=== PATIENT | female | born 1960 | race Caucasian/White ===

== ENCOUNTER 2017-06-28 08:38 | Outpatient (CLI) | payer OTHER ==
--- NOTE | 2017-06-28 10:14 | ULT ---
ABDOMINAL SONOGRAM: HISTORY: Hepatitis. FINDINGS: Non-shadowing sludge and echogenic stones are present within the gallbladder lumen. There is no gall bladder wall thickening or pericholecystic fluid. Common duct is 0.6 cm diameter. Liver is unremark able without focal mass or intrahepatic biliary dilatation. No free fluid is visible. Spleen is upp er limits of normal at 12.6 cm. The kidneys and visualized portions of the abdominal aorta, IVC, and pancreas have a normal appearance. IMPRESSION: Cholelithiasis. No evidence of acute biliary obstruction. POS: [facility]
== END 2017-06-28 08:39 | disposition home or self-care (01) ==
LOC: ULT 08:38
PROVIDERS: ATTEND Family Medicine
DX: B19.20 Unspecified viral hepatitis C without hepatic coma (principal); K80.20 Calculus of gallbladder without cholecystitis without obstruction
CPT/HCPCS: 76700

== ENCOUNTER 2017-11-25 05:49 | Day surgery (SDC) | payer OTHER ==
[2017-11-24 15:48] VITALS: BMI 25.7
[2017-11-25] MEDS ORDERED: Ketorolac Tromethamine 30 MG/ML VIAL ONE (06:25)
[2017-11-25] MEDS ORDERED: CEFAZOLIN/Water 2 GM/20 ML SYRINGE ONE (06:25)
[2017-11-25] MEDS ORDERED: Bupivacaine/Epinephrine 0.25% 30 ML VIAL ONE ×2 (09:19→10:13)
[2017-11-25] MEDS ORDERED: Iothalamate Meglumine 60% 50 ML VIAL FS ONE (09:19)
[2017-11-25] MEDS ORDERED: Fentanyl 100 MCG/2 ML VIAL ONE (09:37)
[2017-11-25] MEDS ORDERED: Morphine 4 MG/ML VIAL ONE (10:40)
[2017-11-25] MEDS ORDERED: Promethazine HCl 25 MG/ML VIAL ONE (11:35)
--- NOTE | 2017-11-25 13:00 | RAD ---
CHOLANGIOGRAM IN SURGERY: HISTORY: Cholelithiasis. COMPARISON: None. FINDINGS/IMPRESSION: Two limited intraoperative fluoroscopic views from a cholangiogram taken in surgery were submitted fo r interpretation. Contrast is seen in the cystic duct and distal common bile duct. Contrast spills into the duodenum. The contrast does not adequately fill the more proximal common bile duct or intra hepatic biliary tree and an obstruction may or may not be present in this location. POS: [facility]
[2017-11-25] MEDS ORDERED: Ondansetron HCl/PF 4 MG/2 ML Vial ONE (15:17)
[2017-11-25] MEDS ORDERED: Glycopyrrolate 0.2 MG/ML 5 ML SYRINGE ONE (15:17)
[2017-11-25] MEDS ORDERED: PROPOFOL 200 MG/20 ML VIAL ONE (15:17)
[2017-11-25] MEDS ORDERED: Dexamethasone 20 MG/5 ML VIAL ONE (15:17)
[2017-11-25] MEDS ORDERED: Lidocaine 1% PF 5 ML VIAL ONE (15:17)
--- NOTE | 2017-11-25 16:18 | PDOC.OP ---
Operative Note - Operative Note Operative Note: PROCEDURE: Laparoscopic cholecystectomy with intraoperative cholangiogram and repair of umbilical hernia SURGEON: Elizabeth Grijalva M.D. DATE OF PROCEDURE: 11/25/2017 PREOPERATIVE DIAGNOSIS: Cholelithiasis and cholecystitis, history of choledocholithiasis, umbilical hernia POSTOPERATIVE DIAGNOSIS: Cholelithiasis and cholecystitis, umbilical hernia HISTORY: Patient with a history of choledocholithiasis status post ERCP 2. Recommendation was made to proceed with laparoscopic cholecystectomy to prevent future episodes. She also has an incidentally noted umbilical hernia for which repair was recommended under the same anesthesia. FINDINGS: Umbilical hernia containing preperitoneal fat. White walled gallbladder with duodenal adhesions. Normal intraoperative cholangiogram. PROCEDURE IN DETAIL: After informed consent was obtained and appropriate preoperative antibiotics were administered, the patient was taken to the operating room and placed in the supine position and general endotracheal anesthesia was administered. The stomach was decompressed with an OG tube and the abdomen was prepped and draped in standard sterile fashion. Local anesthesia was infused to the skin and subcutaneous tissues at the umbilical level. A circumumbilical incision was made and the hernia sac dissected free of the subcutaneous tissues down to the level of the fascia. The fascial defect was about a centimeter in diameter. The hernia was primarily preperitoneal fat was only a small empty sac centrally. The protruding tissues were excised using Bovie electrocautery and a 10 mm trocar placed through the fascial defect into the abdominal cavity. Carbon dioxide was insufflated without difficulty. Opening pressure was less than 5 and carbon dioxide gas easily insufflated to an intra-abdominal pressure of 15, which the patient tolerated well. The abdominal cavity was carefully examined. There was no evidence of trocar injury. Local anesthesia was infused to the skin and subcutaneous tissues at the epigastric, right upper quadrant, and right lateral abdominal sites and trocars were placed under direct vision of the laparoscope. The fundus of the gallbladder was grasped and retracted superiorly. The infundibulum was grasped and retracted laterally. The patient had some duodenal adhesions to the neck of the gallbladder and these adhesions were sharply divided close to the gallbladder avoiding use of electrocautery in the vicinity of the duodenum. The serosa was stripped inferiorly at the level of the neck of the gallbladder exposing the cystic duct and artery which were traced clearly to their insertion in the gallbladder. These were dissected free circumferentially and the cystic duct was clipped at the level of the neck of the gallbladder. The cystic artery was clipped but not divided. An incision was made in the cystic duct inferior to the clip and the cystic duct was palpated with no stones palpable. Clear bile was seen to flow from the cystic duct incision. A cholangiogram catheter was introduced and placed into the cystic duct and secured with a clip. A cholangiogram was obtained which showed an adequate length of cystic duct. There was normal filling of the common bile duct with free flow of contrast into the duodenum. There was normal retrograde flow into the common hepatic duct but due to brisk flow of contrast into the duodenum the common hepatic duct could not be filled beyond the bifurcation even after administering morphine and placing the patient in steep Trendelenburg position. The cholangiogram catheter was removed and the cystic duct clipped below the incision in the cystic duct. The cystic duct was divided between these clips and the previously placed clip. The cystic artery was divided between the previously placed clips. The gallbladder was then dissected free of the gallbladder bed using hook electrocautery. Prior to complete removal of the gallbladder from the gallbladder bed, the area of the cystic duct and artery stumps was examined. The clips were in good position completely across these structures and there was no bleeding and no leakage of bile. The gallbladder was then placed into an EndoCatch bag and drawn out through the umbilical incision. The umbilical trocar was replaced and the operative site easily irrigated to clear. There was no significant bleeding or spillage of bile. The epigastric, right upper quadrant and right lateral abdominal trocars were removed and hemostasis verified. Carbon dioxide gas was allowed to desufflate through the umbilical trocar which was then removed. The umbilical fascia was then reapproximated with interrupted [id number] 0 Vicryl sutures with excellent technical result. Additional local anesthesia was infused at all incisions. The subcutaneous tissues at the umbilicus were reapproximated with Monocryl. The skin incisions were closed with 4-0 subcuticular Monocryl sutures and Dermabond dressings were placed. The Dermabond at the umbilical incision was dry a pressure dressing was placed. The patient was extubated and taken to the recovery room in good condition. There were no complications. ESTIMATED BLOOD LOSS: Minimal. SPECIMEN : Gallbladder and contents.
--- NOTE | 2017-11-28 18:37 | EKG ---
Test Reason : PREOP Blood Pressure : / mmHG Vent. Rate : 051 BPM Atrial Rate : 051 BPM P-R Int : 162 ms QRS Dur : 088 ms QT Int : 448 ms P-R-T Axes : -13 054 047 degrees QTc Int : 412 ms Sinus bradycardia Otherwise normal ECG No previous ECGs available Confirmed by MICHAEL HERNANDEZ (2) on 11/28/2017 6:37:08 PM Referred By: TANIA Confirmed By:MICHAEL HERNANDEZ
== END 2017-11-25 13:24 | disposition home or self-care (01) ==
LOC: SDC 05:49
PROVIDERS: ATTEND Surgery
PROC: 0FT44ZZ Resection of Gallbladder, Percutaneous Endoscopic Approach (ICD-10-PCS; principal; 2017-11-25)
PROC: BF101ZZ Fluoroscopy of Bile Ducts using Low Osmolar Contrast (ICD-10-PCS; principal; 2017-11-25)
DX: K81.1 Chronic cholecystitis (principal); K42.9 Umbilical hernia without obstruction or gangrene; K66.0 Peritoneal adhesions (postprocedural) (postinfection); E11.9 Type 2 diabetes mellitus without complications; I10 Essential (primary) hypertension; Z79.82 Long term (current) use of aspirin; Z79.84 Long term (current) use of oral hypoglycemic drugs; Z79.899 Other long term (current) drug therapy; Z87.891 Personal history of nicotine dependence
CPT/HCPCS: 36416; 47532; 88304; 93005; 93010; 96374; J0131; J1100; J1610; J1885; J2001; J2270; J2405; J2550; J2704; J3010; Q9961

== ENCOUNTER 2019-02-07 08:54 | Outpatient (CLI) | payer OTHER ==
--- NOTE | 2019-02-07 10:13 | MMO ---
Bilateral MAMMO Bilat Screen [facility]. CLINICAL HISTORY: Patient is 58 years old and is seen for screening. The patient has the following family history of breast cancer: sister, at age 43. The patient has no personal history of cancer. VIEWS: The views performed were: bilateral craniocaudal and bilateral mediolateral oblique. FILMS COMPARED: The present examination has been compared to a prior imaging study performed at [facility] on 01/21/2017. This study has been interpreted with the assistance of computer-aided detection. MAMMOGRAM FINDINGS: There are scattered fibroglandular densities. There is a stable intramammary lymph node seen in the right breast. There are no suspicious masses, suspicious calcifications, or new areas of architectural distortion. IMPRESSION: THERE IS NO MAMMOGRAPHIC EVIDENCE OF MALIGNANCY. A ROUTINE FOLLOW-UP MAMMOGRAM IN 1 YEAR IS RECOMMENDED. ACR BI-RADS Category 2 - Benign finding MAMMOGRAPHY NOTE: 1. A negative mammogram report should not delay a biopsy if a dominant of clinically suspicious mass is present. 2. Approximately 10% to 15% of breast cancers are not detected by mammography. 3. Adenosis and dense breasts may obscure an underlying neoplasm. Reported by: LINDA PETIT MD Electonically Signed: [id number]
== END 2019-02-07 08:55 | disposition home or self-care (01) ==
LOC: SCSMAMMO 08:54
PROVIDERS: ATTEND Family Medicine
DX: Z12.31 Encounter for screening mammogram for malignant neoplasm of breast (principal); Z80.3 Family history of malignant neoplasm of breast
CPT/HCPCS: 77067